=== PATIENT | female | born 1985 | race Caucasian/White ===

== ENCOUNTER 2016-07-11 17:16 | Inpatient (IN) | payer OTHER, SELFPAY ==
[~2016-07-11] VITALS: Ht 165.1 cm; Wt 79.0 kg
--- NOTE | 2016-07-14 08:41 | HP ---
ADMIT: 07/11/2016 RM/LOC: [address] [facility] MR#: [id number] [address] [facility] [address] [place] [id number] [address] [place] [address] History and Physical SEX: F AGE: 30 : 1985 DATE OF SERVICE: 07/11/2016 CHIEF COMPLAINT: Shortness of breath and cough. HISTORY OF PRESENT ILLNESS: The patient is a 30-year-old, white female, with history of mild persistent asthma, who has been ill for a few days. Started with a sinus infection, and she was treated with Keflex by Urgent Care. Seemed to settle down into her chest though the last 2 days and she has had more shortness of breath and wheezing and tightness. Hurts to take a deep breath, and she has a dry nagging cough when she breathes deeply. She has been using her Dulera and albuterol at home, but was not improving. Finally, came to the emergency room last night and was noted to be hypoxic even after treatments there. PAST MEDICAL HISTORY: The patient has a history of mild persistent asthma on chronic inhaled steroid therapy. She also has allergic rhinitis, depression, anxiety, chronic headaches, lumbago and gastroesophageal reflux. PAST SURGICAL HISTORY: Surgeries include appendectomy, section, and cholecystectomy. She has had prior hospitalizations for an asthma exacerbation in March 2015, pyelonephritis, a stillbirth, and she has also had 2 normal vaginal deliveries. MEDICATIONS: 1. Duloxetine 60 mg at bedtime. 2. Dulera 2 puffs b.i.d. 3. Singulair 10 mg daily. 4. Keflex 500 mg 2 tabs b.i.d. 5. Ibuprofen 600 mg q.6 hours p.r.n. 6. Albuterol inhaler as needed. 7. Omeprazole 20 mg at bedtime. 8. Flexeril 10 mg t.i.d. p.r.n. ALLERGIES: PENICILLIN. SOCIAL HISTORY: The patient is . She does not work outside the home. No prior tobacco use. Denies any current alcohol or drug use. FAMILY HISTORY: Significant for hypertension and diabetes. REVIEW OF SYSTEMS: CONSTITUTIONAL: No fevers or chills. Mild generalized aches. HEENT: Gets chronic headaches. No recent changes in that though. No vision changes. Sinuses feel better. No sore throat. CARDIAC: Feels tightness in her chest, but no chest pressure or palpitations. RESPIRATORY: As above. GASTROINTESTINAL: Some mild nausea and loss of appetite, but no diarrhea, constipation, or abdominal pain. No vomiting. GENITOURINARY: She has been urinating normally with no dysuria. ADMIT: 07/11/2016 RM/LOC: [address] [facility] MR#: [id number] [address] [address] [place] [address] History and Physical SEX: F AGE: 30 : 1985 MUSCULOSKELETAL: She has chronic low back pain. PSYCHIATRY: Chronic depression and anxiety that has been fairly well controlled lately. Rest of review of systems is negative. PHYSICAL EXAMINATION: GENERAL: The patient is afebrile, blood pressure 110/71, pulse 89, respirations 16, and sats are 95% on 2 L. GENERAL: The patient is alert and oriented x3 and in no acute distress. HEENT: Head is atraumatic and normocephalic. Sclerae are clear. Pupils are round and reactive. Nares are patent. Oropharynx looks moist without lesions. NECK: Supple with no lymphadenopathy. HEART: Regular without murmurs. LUNGS: Diminished with mild expiratory wheezes. Taking a deep breath causes a dry coughing spell. ABDOMEN: Soft, nondistended, nontender with good bowel sounds. EXTREMITIES: No edema. No posterior calf tenderness. NEURO: No focal neurologic changes. SKIN: No rashes. LABORATORY DATA: BMP is normal. CBC shows a white count 13,800, hemoglobin 16, and platelets 286. Chest x-ray shows atelectasis with left lower lobe discoid atelectasis. D-dimer was 0.26. ASSESSMENT: 1. Acute asthma exacerbation. 2. Mild persistent asthma. 3. Acute bronchitis. 4. Depression, major, chronic. 5. Anxiety disorder. 6. Gastroesophageal reflux. 7. Lumbago. 8. Allergic rhinitis. PLAN: We will continue Zithromax and IV steroids. We will repeat a chest x- ray this morning. At this point, no signs of pneumonia. We will monitor closely and encourage activity, and we will encourage close followup for her asthma as an outpatient. Chayo Kilgore MD/ hao JOB #: [id number] CC: Chayo Kilgore MD, Attending Physician Chayo Kilgore MD, Family Physician
[2016-07-16] MEDS ORDERED: CYMBALTA60 MG PO (20:05)
[2016-07-16] MEDS ORDERED: PROVENTIL HFA6.7 GM IH (20:06)
[2016-07-16] MEDS ORDERED: DULERA 100/58.8 GM IH (20:06)
[2016-07-16] MEDS ORDERED: MONTELUKAST SOD10 MG (20:06)
[2016-07-16] MEDS ORDERED: MOTRIN-DPS600 MG PO (20:06)
[2016-07-16] MEDS ORDERED: FLEXERIL-DPS10 MG PO (20:07)
[2016-07-16] MEDS ORDERED: PRILOSEC DPS20 MG PO (20:07)
[2016-07-16] MEDS ORDERED: DUONEB DPS3 ML IH ×2 (20:07)
[2016-07-16] MEDS ORDERED: ELAVIL-DPS50 MG PO (20:07)
[2016-07-16] MEDS ORDERED: TESSALON PERLE100 M1 PO (20:08)
[2016-07-16] MEDS ORDERED: ZOFRAN ODT4 MG PO (20:08)
[2016-07-16] MEDS ORDERED: TYLENOL DPS325 MG PO (20:08)
[2016-07-16] MEDS ORDERED: ATARAX-DPS10 MG PO (20:08)
[2016-07-16] MEDS ORDERED: DELTASONE DPS10 MG PO (20:11)
--- NOTE | 2016-07-17 08:16 | ER ---
ADMIT: 07/11/2016 RM/LOC: [address] [id number] [id number] [address] [address] [address] [place] [address] Emergency Room Report SEX: F AGE: 30 : 1985 DATE: 07/11/2016 HISTORY OF PRESENT ILLNESS: The patient is a 30-year-old, who walked into the emergency room with shortness of breath and chest pain for 2 days. She has had recent sinus infection and ear infection. She developed chills today. advised her to come into the emergency room. Last time she had a pneumonia was on 04/19/2016 and she was hospitalized. She explains that her pneumonia was never seen in the x-ray, so they did a CT at that time, but the CT was negative. So, her vitals are 109/66 with a pulse of 94, respirations 18, temp is 97.6, O2 sats 98% at room air. MEDICATIONS: She takes: 1. Keflex. 2. Duloxetine. 3. Singular. 4. Dulera. 5. Albuterol nebulizer. PAST MEDICAL HISTORY: She has had an asthma issue for a long time. PAST SURGICAL HISTORY: She had a cholecystectomy, appendectomy, , hernia with umbilical hernia repair. SOCIAL HISTORY: Denies drinking, drugs, or alcohol. PHYSICAL EXAMINATION: GENERAL: A well-nourished, well-developed, alert female but moderately anxious. HEENT: Dry oral mucosa. NECK: Supple. She does have decreased air movement with wheezes throughout. CVS: Regular in rate and rhythm. SKIN: Good color. ABDOMEN: Nontender. EXTREMITIES: Nontender. NEUROLOGIC: Oriented x4. She is in a little depressed mood. LABORATORY AND X-RAY DATA: X-ray, nothing acute except atelectasis which was ADMIT: 07/11/2016 RM/LOC: [address] [facility] MR#: [id number] [address] [address] [address] [place] [address] Emergency Room Report SEX: F AGE: 30 : 1985 present on previous time she was in the ER. CBC; white count is 13.8, glucose 105, D-dimer 0.26 and not elevated. ABGs at 1941 hours in room air with pH of 7.3, pCO2 of 45.8, PO2 56. Previous records were reviewed and got most of the history from this. CLINICAL IMPRESSION: Asthma exacerbation with hypoxia. O2 sats remaining low, between [address] Holm contacted at 2100 hours and orders received. The patient received 2 DuoNebs, had IV fluids going normal saline, received prednisone 60 mg p.o., and still was unable to go home due to her saturation. The patient is awaiting room placement. WOOD Gomez / Shyam Reyes MD / hao JOB #: [id number] CC: Chayo Kilgore MD, Attending Physician Chayo Kilgore MD, Family Physician
--- NOTE | 2016-08-18 09:07 | DS ---
ADMIT: 07/11/2016 RM/LOC: 618 [facility] MR#: [id number] [address] [address] [address] [place] [address] General Discharge Summary SEX: F AGE: 30 : 1985 ADMISSION DATE: 07/11/2016 DISCHARGE DATE: 07/16/2016 FINAL DIAGNOSES: 1. Acute asthma exacerbation. 2. Acute hypoxic respiratory failure. 3. Acute bronchitis. 4. Mild persistent asthma. 5. Depression and anxiety. REASON FOR ADMISSION: The patient is a 30-year-old, white female, with a history of mild intermittent asthma. She has been suffering from worsening cough and congestion for about a week to 10 days. Had a visit to [facility] prior to admission, but was not improving with her therapies, so came to the emergency room, was noted to be hypoxic. Chest x-ray was normal, but she was in distress and requiring oxygen, was admitted for further evaluation and treatment. HOSPITAL COURSE: The patient was admitted and started on DuoNeb, Zithromax, Solu-Medrol, and oxygen to maintain her sats. Chest x-ray on repeat did not show any developing pneumonia. She did have some vomiting and nausea and was treated with Zofran. Respiratory Therapy worked with the patient as well and encouraged frequent incentive spirometry and ambulation. Her steroids were slowly weaned, but she continued to require oxygen until the . Finally was weaned to room air and she was feeling better and able to ambulate without difficulty. DISCHARGE INSTRUCTIONS: The patient will be discharged to home. She will do a prednisone taper starting at 40 mg daily and tapering off over the next 2 weeks. MEDICATIONS: Other medications include: 1. Cymbalta 60 mg at bedtime. 2. Omeprazole 20 mg daily. 3. Singulair 10 mg daily. 4. Dulera 100/5 two puffs b.i.d. ADMIT: 07/11/2016 RM/LOC: [address] [facility] MR#: [id number] [address] [facility] [address] [place] [phone] [address] [place] [address] General Discharge Summary SEX: F AGE: 30 : 1985 5. DuoNeb q.i.d. 6. Flexeril 10 mg t.i.d. p.r.n. 7. Motrin 600 mg q.6 hours p.r.n. 8. Tessalon Perles 200 mg q.8 hours p.r.n. 9. Tylenol 650 mg q.4 hours p.r.n. 10.Zofran 4 mg q.6 hours p.r.n. 11.DuoNeb q.2 hours p.r.n. 12.Proventil 2 puffs q.4 hours p.r.n. 13.Hydroxyzine 30 mg at bedtime. 14.Amitriptyline 50 mg at bedtime. Will follow up with me in 1 week for a repeat exam. Chayo Kilgore MD/ hao JOB #: [id number] CC: Chayo Kilgore MD, Attending Physician Chayo Kilgore MD, Family Physician
== END 2016-07-16 12:50 | disposition home or self-care (01) | DRG 202 ==
LOC: ER 17:16 → 5MS 21:00 → 6PED 21:45
PROVIDERS: ADMIT Family Medicine
DX: J45.31 Mild persistent asthma with (acute) exacerbation (principal); J96.01 Acute respiratory failure with hypoxia; J98.11 Atelectasis; F32.9 Major depressive disorder, single episode, unspecified; R09.02 Hypoxemia; F41.9 Anxiety disorder, unspecified; R51 Headache; K21.9 Gastro-esophageal reflux disease without esophagitis; J20.9 Acute bronchitis, unspecified; M54.5 Low back pain; Z79.51 Long term (current) use of inhaled steroids

== ENCOUNTER → 2016-09-08 | Outpatient (CLI) | payer OTHER ==
[~2016-09-08] MED LIST: ATARAX-DPS10 MG PO; CYMBALTA60 MG PO; DELTASONE DPS10 MG PO; DULERA 100/58.8 GM IH; DUONEB DPS3 ML IH; ELAVIL-DPS50 MG PO; FLEXERIL-DPS10 MG PO; MONTELUKAST SOD10 MG; MOTRIN-DPS600 MG PO; PRILOSEC DPS20 MG PO; PROVENTIL HFA6.7 GM IH; TESSALON PERLE100 M1 PO; TYLENOL DPS325 MG PO; ZOFRAN ODT4 MG PO
== END | disposition home or self-care (01) ==
LOC: PTH.S 08:22
DX: J12.89 Other viral pneumonia (principal)